=== PATIENT | female | born 1960 ===

== ENCOUNTER 2017-09-25 14:28 | Outpatient (CLI) | payer BC | END 2017-09-25 14:29 | disposition home or self-care (01) | LOC: BICMAMMO 14:28 | PROVIDERS: ATTEND Obstetrics & Gynecology | DX: Z12.31 Encounter for screening mammogram for malignant neoplasm of breast (principal); Z85.3 Personal history of malignant neoplasm of breast | CPT/HCPCS: 77063; 77067 ==

== ENCOUNTER 2018-06-30 09:40 | Outpatient (CLI) | payer BC ==
--- NOTE | 2018-06-30 10:46 | ULT ---
RIGHT UPPER QUADRANT ULTRASOUND: Date: 06-30-18 Provided Clinical History: Right upper quadrant pain. FINDINGS: The visualized IVC and pancreas appear normal. The liver demonstrates no mass or intrahepatic biliary ductal dilatation. Common duct is not dilated. Gallbladder demonstrates no stones, wall thickening, or pericholecystic fluid. Right kidney demonstrates no evidence for hydronephrosis or mass. IMPRESSION: Unremarkable right upper quadrant ultrasound. POS: C
== END 2018-06-30 09:41 | disposition home or self-care (01) ==
LOC: SCSULT 09:40
PROVIDERS: ATTEND Obstetrics & Gynecology
DX: R10.9 Unspecified abdominal pain (principal)
CPT/HCPCS: 76705